=== PATIENT | male | born 1995 | race Caucasian/White ===

== ENCOUNTER 2018-07-06 12:26 | Emergency (ER) | payer OTHER ==
[~2018-07-06 12:26] MED LIST: CEPH-375 PO; CLIN300C8 PO; HYDR-3237 PO; OXYC1TAB7 PO; SENN1TAB8 PO; SULF1TAB24 PO
[2018-07-06 12:45] VITALS: BP 130/73
== END 2018-07-06 14:19 | disposition home or self-care (01) ==
LOC: ED 13:30
DX: S90.31XA Contusion of right foot, initial encounter (principal); X58.XXXA Exposure to other specified factors, initial encounter; Y93.89 Activity, other specified; Y92.488 Other paved roadways as the place of occurrence of the external cause; Y99.8 Other external cause status
CPT/HCPCS: 99284